=== PATIENT | female | born 1965 | race Caucasian/White ===

== ENCOUNTER → 2016-09-01 | Outpatient (CLI) | payer OTHER ==
[~2016-09-01] MED LIST: PROVERA10 MG PO; PROZAC PO
--- NOTE | ~2016-09-01 | CT16 ---
[facility] A Service of [facility] RADIOLOGY TEXT RESULTS PATIENT: JENNIFER LOERA LOCATION: [facility] : 65 UNIT #: [id number] AGE: [address]: Marco Boles MD SEX: F ORDER DR: [id number] [facility] [address] [place], [place] [address] [id number] O MR#: [id number] Acc #: [id number] NAME: JENNIFER LOERA : 1965 SEX: F STUDY DATE/TIME: 09/01/2016 9:52 UNIT: [facility] ROOM: STUDY DESCRIPTION: CT Angio Chest for PE Attending Physician: Marco Boles M.D. Referring Physician: Marco Boles M.D. Ordering Physician: Marco Boles M.D. Primary Care Physician: Stephen Simon Pa-C MEDICAL IMAGING REPORT This report is preliminary unless electronic signature is present EXAM CT chest PE protocol HISTORY Chest pain, tightness radiating to back x1 year. TECHNIQUE Axial images performed through the chest following IV contrast. 3-D coronal and sagittal reconstructed images reviewed at a workstation. This CT exam was performed with one or more of the following radiation dose reduction techniques: automatic exposure control, adjustment of mA and/or kV according to patient size, and iterative reconstruction. FINDINGS Minimal dependent atelectasis. Background pulmonary parenchyma within normal limits. No effusions. Trachea and bronchi unremarkable. Normal enhancement of the pulmonary arteries. No evidence of embolus. The heart, aorta unremarkable. No significant adenopathy. The visualized upper abdomen appears normal. Osseous structures and thoracic inlet unremarkable. Bilateral saline breast implants. IMPRESSION Normal CT chest PE protocol. Dictated by... Mary Moreno M.D. THIS IS AN ELECTRONICALLY VERIFIED REPORT Mary Moreno M.D. at 09/02/2016 7:28 AM Reece [facility] A Service of [facility] RADIOLOGY TEXT RESULTS PATIENT: JENNIFER LOERA LOCATION: [facility] #: [id number] : 65 UNIT #: [id number] AGE: [address]: Marco Boles MD SEX: F ORDER DR: TD: 09/01/2016 13:00 JOB #: [id number] MEDICAL IMAGING REPORT Page 1 of 1 COPY
== END | disposition home or self-care (01) ==
LOC: CCAT 09:03
DX: R06.00 Dyspnea, unspecified (principal)
CPT/HCPCS: 71275; Q9967